=== PATIENT | male | born 1940 | race Caucasian/White ===

== ENCOUNTER → 2019-05-07 | Outpatient (CLI) | payer OTHER, MEDICARE ==
[~2019-05-07] VITALS: Ht 172.7 cm; Wt 76.2 kg
[~2019-05-07] MED LIST: AMANTADINE 100100 M1 PO; ARICEPT 5 MG TAB5 MG PO; CARBIDOPA-LEVO1 EAC7 PO; CENTRUM SILVER1 EAC4 PO; FINASTERIDE5 MG PO; FLOMAX0.4 MG PO; FLONASE 0.05%50 MCG NASAL; HIPREX1 GM PO; LOPRESSOR25 PO; MELATONIN5 M1 PO; METOPROLOL TART25 MG PO; MIRALAX17 GM PO; OXYCODONE HCL 55 MG PO; SINEMET 25-1001 EAC1 PO; VITAMINC500 PO; ZOLOFT50 MG PO
[2019-05-07 14:20] VITALS: BP 149/85
== END | disposition home or self-care (01) ==
LOC: CATH 11:46
DX: M80.08XA Age-related osteoporosis with current pathological fracture, vertebra(e), initial encounter for fracture (principal); M54.9 Dorsalgia, unspecified; I10 Essential (primary) hypertension; I48.91 Unspecified atrial fibrillation; N40.0 Benign prostatic hyperplasia without lower urinary tract symptoms; G20 Parkinson's disease; F32.9 Major depressive disorder, single episode, unspecified; Z79.899 Other long term (current) drug therapy; Z79.01 Long term (current) use of anticoagulants; Z98.890 Other specified postprocedural states; Z87.891 Personal history of nicotine dependence